=== PATIENT | male | born 1985 | race Hispanic/Latino ===

== ENCOUNTER 2016-06-30 05:19 | Emergency (ER) | payer SELFPAY ==
[2016-06-30 05:41] VITALS: PULSE 80; RESP 14; O2SAT 97
[2016-06-30] MEDS ORDERED: Oxycodone/Acetaminophen 5/325 mg Tab PO STA (06:28)
[2016-06-30] MEDS ORDERED: Amoxicillin-Clav 500-125 mg Tab PO ONE (06:33)
[2016-06-30] MEDS ORDERED: Oxycodone/Acetaminophen 5/325 mg Tab ONE (06:33)
--- NOTE | 2016-06-30 06:33 | C.PDOC ---
History Of Present Illness 30 year old male presents to the ED with complaints of left sided dental pain. Patient states he has a crack to his left upper 2nd premolar and was being followed by his dentist and was told he needed a root canal, however he no longer has insurance. He notes he recently developed pain to the area and denies and swelling, fever, or any other complaints at this time. Time Seen by Provider: 06/30/16 05:42 Chief Complaint (Nursing): Dental Pain History Per: Patient History/Exam Limitations: no limitations Onset/Duration Of Symptoms: Days Current Symptoms Are (Timing): Still Present Severity: Mild Quality: Positive for: "Pain" Past Medical History Reviewed: Historical Data, Nursing Documentation, Vital Signs Vital Signs: Last Vital Signs Temp 97.8 F 06/30/16 06:45 Pulse 80 06/30/16 06:45 Resp 14 06/30/16 06:45 BP 140/80 06/30/16 06:45 Pulse Ox 97 06/30/16 06:45 - Medical History PMH: No Chronic Diseases - [facility] Procedures OTHER SKIN & SUBQ I D (11/04/12) Family History: States: Unknown Family Hx - Social History Hx Tobacco Use: Yes Hx Alcohol Use: Yes Hx Substance Use: No - Immunization History Hx Tetanus Toxoid Vaccination: No Hx Influenza Vaccination: Yes (2 yrs ago) Hx Pneumococcal Vaccination: No Review Of Systems Except As Marked, All Systems Reviewed And Found Negative. Constitutional: Negative for: Fever ENT: Positive for: Other (+Dental pain) Respiratory: Negative for: Cough Gastrointestinal: Negative for: Vomiting Physical Exam - Physical Exam Appears: Non-toxic, No Acute Distress Skin: Normal Color, Warm, Dry Head: Atraumatic, Normacephalic Eye(s): bilateral: Normal Inspection Oral Mucosa: Moist Tongue: Normal Appearing Lips: Normal Appearing Teeth: Other (+Fracture to left upper 2nd premolar. No exposed pulp, swelling, or abscess.) Gingiva: Normal Appearing Throat: Normal Neck: Supple Chest: Symmetrical Respiratory: No Accessory Muscle Use Neurological/Psych: Oriented x3, Normal Speech, Normal Cognition ED Course And Treatment O2 Sat by Pulse Oximetry: 97 (Room air) Pulse Ox Interpretation: Normal Medical Decision Making Medical Decision Making: Patient treated with Amoxicillin and Percocet. Rx given and patient advised to follow up with the dental clinic in 2-3 days. Disposition - Disposition Referrals: [facility] [Outside] Disposition: HOME/ ROUTINE Disposition Time: 06:33 Condition: GOOD Additional Instructions: Follow up with the dentist or the dental clinic within 2-3 days without fail. return if worsened. Prescriptions: Amoxicillin [Amoxil 500 mg Cap] 500 mg PO TID #29 cap oxyCODONE/Acetaminophen [Percocet 5/325 mg Tab] 1 tab PO QID PRN #20 tab PRN Reason: Pain Instructions: Dental Caries (ED) - Clinical Impression Clinical Impression: Dental caries - PA / [employer] / Resident Statement MD/DO has reviewed & agrees with the documentation as recorded. - Scribe Statement The provider has reviewed the documentation as recorded by the Scribe Joselin Otero. All medical record entries made by the Gloriaibkayy were at my direction and personally dictated by me. I have reviewed the chart and agree that the record accurately reflects my personal performance of the history, physical exam, medical decision making, and the department course for this patient. I have also personally directed, reviewed, and agree with the discharge instructions and disposition.
--- NOTE | 2016-06-30 06:33 | C.PDOC ---
Time Seen by Provider: 06/30/16 05:42 Chief Complaint (Nursing): Dental Pain Past Medical History Vital Signs: Last Vital Signs Temp 97.7 F 06/30/16 05:39 Pulse 80 06/30/16 05:39 Resp 14 06/30/16 05:39 BP 148/77 06/30/16 05:39 Pulse Ox 97 06/30/16 05:39 - [facility] Procedures OTHER SKIN & SUBQ I D (11/04/12) Family History: States: Unknown Family Hx - Social History Hx Tobacco Use: Yes Hx Alcohol Use: Yes Hx Substance Use: No - Immunization History Hx Tetanus Toxoid Vaccination: No Hx Influenza Vaccination: Yes (2 yrs ago) Hx Pneumococcal Vaccination: No ED Course And Treatment O2 Sat by Pulse Oximetry: 97 Disposition - Disposition Disposition: HOME/ ROUTINE Disposition Time: 06:33 Condition: GOOD Additional Instructions: Follow up with the dentist or the dental clinic within 2-3 days without fail. return if worsened. - Clinical Impression Clinical Impression: Dental caries
[2016-06-30 06:46] VITALS: BP 140/80; TEMP 97.8
== END 2016-06-30 06:46 | disposition home or self-care (01) ==
LOC: C.ER 05:19
DX: K02.9 Dental caries, unspecified (principal)

== ENCOUNTER 2016-10-29 12:01 | Emergency (ER) | payer MEDICAID, OTHER ==
[2016-10-29 12:07] VITALS: TEMP 98.1; O2SAT 98
--- NOTE | 2016-10-29 12:26 | C.PDOC ---
History Of Present Illness 31 year old male no past medical history presents with lower back pain which started on Thursday. He states he was carrying his family member down the stairs on his back and when he put her down he knelt down to prevent her from falling and heard a "cracking sound" in his R lower back. He reports that since then the pain is burning and dull and radiates into his right buttock. Pain has been constant. He has not tried any medications at home to relieve the pain. Denies other trauma, fever/chills, chest pain, SOB, saddle anesthesia, numbness or tingling, urinary complaints, difficulties ambulating. Denies previous back pain. Time Seen by Provider: 10/29/16 12:12 Chief Complaint (Nursing): Back Pain History Per: Patient History/Exam Limitations: no limitations Onset/Duration Of Symptoms: Days Current Symptoms Are (Timing): Still Present Quality Of Discomfort: Dull, Burning Severity: Moderate Pain Scale Rating Of: 8 Previous Symptoms: denies: Back Pain, Neck Pain, Chronic Pain, Prior Injury Associated Symptoms: denies: Incontinence, New Weakness, New Numbness Exacerbating Factor(s): Movement Recent travel outside of the [facility]: No Past Medical History Vital Signs: Last Vital Signs Temp 98.1 F 10/29/16 12:04 Pulse 88 10/29/16 13:46 Resp 20 10/29/16 13:46 BP 111/66 10/29/16 13:46 Pulse Ox 98 10/29/16 13:49 - Medical History PMH: No Chronic Diseases - [facility] Procedures OTHER SKIN & SUBQ I D (11/04/12) Family History: States: Unknown Family Hx - Social History Hx Tobacco Use: Yes Hx Alcohol Use: Yes Hx Substance Use: No - Immunization History Hx Tetanus Toxoid Vaccination: No Hx Influenza Vaccination: Yes (2 yrs ago) Hx Pneumococcal Vaccination: No Review Of Systems Constitutional: Negative for: Fever, Chills Eyes: Negative for: Vision Change Cardiovascular: Negative for: Chest Pain, Palpitations Respiratory: Negative for: Cough, Shortness of Breath Gastrointestinal: Negative for: Nausea, Vomiting, Abdominal Pain Musculoskeletal: Positive for: Back Pain. Negative for: Neck Pain, Shoulder Pain, Leg Pain Skin: Negative for: Rash, Lesions Neurological: Negative for: Weakness, Numbness, Headache Physical Exam - Physical Exam Appears: Well, Non-toxic, No Acute Distress Skin: Normal Color, Warm, Dry Head: Atraumatic, Normacephalic Eye(s): bilateral: Normal Inspection Throat: Normal Cardiovascular: Rhythm Regular Respiratory: Normal Breath Sounds, No Accessory Muscle Use Gastrointestinal/Abdominal: Normal Exam, Soft Back: No CVA Tenderness, No Decreased ROM, Muscle Spasm, Paraspinal Tenderness, Other (muscle spams bilaterally, no lacerations, edema, ambulating normally, decreased forward flexion otherwise normal ROM) Extremity: Normal ROM, No Tenderness, No Calf Tenderness, No Swelling Extremity: Bilateral: Atraumatic Neurological/Psych: Oriented x3, Normal Speech, Normal Cognition, Normal Cranial Nerves Gait: Steady ED Course And Treatment O2 Sat by Pulse Oximetry: 98 Medical Decision Making Medical Decision Making: Plan: -Valium -Flexeril -Lidoderm patch -Lumbar spine X ray Pain likely due to muscle spasm. Lumbar spine X ray normal and no signs of fracture or acute pathology as read by Dr. Vines. Disposition - Disposition Referrals: Kalyan Ceja DO [Non-Staff] - [facility] [Outside] Disposition: HOME/ ROUTINE Disposition Time: 13:41 Condition: GOOD Additional Instructions: Patient is to take Naproxen and Flexeril as needed for pain/muscle pain. He is to follow up with his primary care within 1 week for follow up care. Patient is to return if the pain worsens or does not improve. Prescriptions: Cyclobenzaprine [Flexeril] 5 mg PO TID PRN #9 tab PRN Reason: Muscle Spasm Naproxen [Naprosyn] 500 mg PO BID PRN #14 tablet PRN Reason: Pain, Moderate (4-7) Instructions: Muscle Spasm (ED) Forms: General Discharge Instructions - Clinical Impression Clinical Impression: Low back strain, Muscle spasm of back, Muscle spasm
[2016-10-29] MEDS ORDERED: Lidocaine 5% Patch TD ONE ×2 (12:30→12:34)
[2016-10-29 13:47] VITALS: BP 111/66; PULSE 88; RESP 20
--- NOTE | 2016-10-29 13:48 | RAD ---
PROCEDURE: Radiographs of the Lumbar Spine. HISTORY: "pop in the back" R sided lower back pain x4 days COMPARISON: None available FINDINGS: BONES: Alignment appears satisfactory. No listhesis. No acute displaced fracture identified. DISC SPACES: Unremarkable. OTHER FINDINGS: None. IMPRESSION: No acute displaced fracture or subluxation identified.
== END 2016-10-29 13:54 | disposition home or self-care (01) ==
LOC: C.ER 12:01
DX: S39.012A Strain of muscle, fascia and tendon of lower back, initial encounter (principal); X50.0XXA Overexertion from strenuous movement or load, initial encounter; Y92.89 Other specified places as the place of occurrence of the external cause

== ENCOUNTER 2016-11-29 12:26 | Emergency (ER) | payer MEDICAID ==
[2016-11-29 12:34] VITALS: BP 120/66; PULSE 81; RESP 16; TEMP 98.3; O2SAT 98
[2016-11-29] MEDS ORDERED: Naproxen 550 mg Tab PO STA (13:10)
[2016-11-29] MEDS ORDERED: Naproxen 550 mg Tab PO ONE (13:10)
--- NOTE | 2016-11-29 13:10 | C.PDOC ---
History Of Present Illness 31 yo male c/o left knee pain and redness for three days. Notes that he felt some soreness , yesterday he saw some swelling and today he saw some redness. No fever. No trauma. No change in sensation. No known bug bites. (+) able to ambulate Time Seen by Provider: 11/29/16 12:43 Chief Complaint (Nursing): Lower Extremity Problem/Injury History Per: Patient History/Exam Limitations: no limitations Onset/Duration Of Symptoms: Days Past Medical History Vital Signs: Last Vital Signs Temp 98.3 F 11/29/16 13:15 Pulse 81 11/29/16 13:15 Resp 16 11/29/16 13:15 BP 120/66 11/29/16 13:15 Pulse Ox 98 11/29/16 13:15 - [facility] Procedures OTHER SKIN & SUBQ I D (11/04/12) Family History: States: Unknown Family Hx - Social History Hx Tobacco Use: Yes Hx Alcohol Use: Yes Hx Substance Use: Yes - Immunization History Hx Tetanus Toxoid Vaccination: Yes Hx Influenza Vaccination: Yes Hx Pneumococcal Vaccination: No Review Of Systems Except As Marked, All Systems Reviewed And Found Negative. Physical Exam - Physical Exam Appears: Well, Non-toxic, No Acute Distress Skin: Warm, Dry, Other ((+) 5cm area of erythema and mild swelling to the skin on the lateral know) Head: Atraumatic, Normacephalic Eye(s): bilateral: Normal Inspection, EOMI Nose: Normal Oral Mucosa: Moist Neck: Normal Chest: Symmetrical Respiratory: No Accessory Muscle Use Back: Normal Inspection Extremity: Normal ROM (full ROM without any difficulty or pain), No Tenderness, No Calf Tenderness, Capillary Refill (< 2 sec), Swelling (mild) Pulses: Left Dorsalis Pedis: Normal, Right Dorsalis Pedis: Normal Neurological/Psych: Oriented x3, Normal Speech, Normal Motor, Normal Sensation Gait: Steady ED Course And Treatment O2 Sat by Pulse Oximetry: 98 Progress Note: Doxy ordered. Area of erythema circled. Instructed to return to ER if symptoms persist or wrosen. Case discussed and pt evaluated by Dr Pool, renetta sierra. Disposition - Disposition Referrals: Anjum Roberson MD [Staff Provider] - Disposition: HOME/ ROUTINE Disposition Time: 13:07 Condition: STABLE Additional Instructions: Wound check in 2 days. Return sooner if fever, increased redness, or swelling. Prescriptions: Doxycycline Hyclate [Doryx] 100 mg PO BID 7 Days Naproxen [Naprosyn] 1 tab PO BID PRN #20 tab PRN Reason: Pain Instructions: Cellulitis (ED) Forms: [employer] ([place]) - Clinical Impression Clinical Impression: Cellulitis
== END 2016-11-29 13:15 | disposition home or self-care (01) ==
LOC: C.ER 12:26
DX: L03.116 Cellulitis of left lower limb (principal)

== ENCOUNTER 2018-06-02 07:52 | Emergency (ER) | payer SELFPAY ==
[2018-06-02 07:55] VITALS: BMI 23.1
[2018-06-02 07:56] VITALS: BP 123/78; PULSE 83; RESP 18; TEMP 97.9; O2SAT 97
--- NOTE | 2018-06-02 12:39 | C.PDOC ---
History Of Present Illness 32 y/o male presents to the ER complaining of right lower broken tooth since yesterday. Patient states that he called his dentist however the next available appointment is in 3 days. Therefore, he decided to visit the ER. Denies having foul taste mouth, fever, and chills. Time Seen by Provider: 06/02/18 07:57 Chief Complaint (Nursing): Dental Pain History Per: Patient History/Exam Limitations: no limitations Onset/Duration Of Symptoms: Days Current Symptoms Are (Timing): Still Present Severity: Moderate Past Medical History Reviewed: Historical Data, Nursing Documentation, Vital Signs Vital Signs: Last Vital Signs Temp 97.9 F 06/02/18 07:55 Pulse 83 06/02/18 07:55 Resp 18 06/02/18 08:16 BP 123/78 06/02/18 07:55 Pulse Ox 97 06/02/18 07:55 - Medical History PMH: No Chronic Diseases Surgical History: No Surg Hx - [facility] Procedures OTHER SKIN & SUBQ I D (11/04/12) Family History: States: No Known Family Hx - Social History Hx Tobacco Use: Yes Hx Alcohol Use: Yes Hx Substance Use: Yes - Immunization History Hx Tetanus Toxoid Vaccination: Yes Hx Influenza Vaccination: Yes Hx Pneumococcal Vaccination: No Review Of Systems Except As Marked, All Systems Reviewed And Found Negative. Constitutional: Negative for: Fever, Chills ENT: Positive for: Mouth Pain Physical Exam - Physical Exam Appears: Non-toxic, No Acute Distress Skin: Normal Color, Warm, Dry Head: Atraumatic, Normacephalic Eye(s): bilateral: Normal Inspection Nose: Normal Oral Mucosa: Moist Teeth: No Normal Dentition (poor dentition), Caries (multiple caries), Other (multiple broken teeth) Neurological/Psych: Oriented x3, Normal Speech ED Course And Treatment O2 Sat by Pulse Oximetry: 97 (RA) Pulse Ox Interpretation: Normal Medical Decision Making Medical Decision Making: Plan: --Motrin PO Disposition - Disposition Referrals: Ortiz Platt, [Non-Staff] - Disposition: HOME/ ROUTINE Disposition Time: 08:00 Condition: GOOD Additional Instructions: BERNARDO VELASQUEZ, thank you for letting us take care of you today. Your provider was Eduard Loomis DO and you were treated for DENTAL PAIN. The emergency medical care you received today was directed at your acute symptoms. If you were prescribed any medication, please fill it and take as directed. It may take several days for your symptoms to resolve. Return to the Emergency Department if your symptoms worsen, do not improve, or if you have any other problems. Please contact your doctor or call one of the physicians/clinics you have been referred to that are listed on the Patient Visit Information form that is included in your discharge packet. Bring any paperwork you were given at discharge with you along with any medications you are taking to your follow up visit. Our treatment cannot replace ongoing medical care by a primary care provider outside of the emergency department. Thank you for allowing the [facility] team to be part of your care today. Follow up with your dentist or one provided to you for re-evaluation and further management. Prescriptions: Amoxicillin/Clavulanate [Augmentin 875 MG-125 MG] 1 tab PO BID #14 tab traMADol [Ultram] 50 mg PO Q8 PRN #15 tab PRN Reason: Pain, Severe (8-10) Instructions: Dental Pain (DC) Forms: [employer] (Welsh) - Clinical Impression Clinical Impression: Dental caries - Scribe Statement The provider has reviewed the documentation as recorded by the Gloriaibe Quynh Reddy Provider Attestation: All medical record entries made by the Scribe were at my direction and personally dictated by me. I have reviewed the chart and agree that the record accurately reflects my personal performance of the history, physical exam, medical decision making, and the department course for this patient. I have also personally directed, reviewed, and agree with the discharge instructions and disposition.
== END 2018-06-02 08:20 | disposition home or self-care (01) ==
LOC: C.ER 07:52
DX: K02.9 Dental caries, unspecified (principal)